=== PATIENT | female | born 1950 | race Asian ===

== ENCOUNTER 2018-09-20 23:08 | Inpatient (IN) | payer MEDICARE, OTHER ==
[~2018-09-20] VITALS: Ht 157.5 cm; Wt 49.0 kg
[2018-09-20] MEDS ORDERED: RISP2TAB5 PO (23:43)
[2018-09-20] MEDS ORDERED: MIRT15TA7 PO (23:43)
[2018-09-20] MEDS ORDERED: ACET-2154 PO (23:43)
[2018-09-20] MEDS ORDERED: MAG30ORA PO (23:43)
[2018-09-20] MEDS ORDERED: MAGN400O6 PO (23:43)
[2018-09-20 23:51] LABS: BASOPHILS # (AUTO) 0.1 K/uL (0.0-8.0); BASOPHILS % (AUTO) 0.8 % (0.0-2.0); EOSINOPHILS # (AUTO) 0.1 K/uL (0.0-0.7); EOSINOPHILS % (AUTO) 0.7 % (0.0-7.0); HEMOGLOBIN 12.2 g/dL (10.9-14.3); LYMPHOCYTES # (AUTO) 1.9 K/uL (20.0-40.0); LYMPHOCYTES % (AUTO) 24.5 % (20.5-51.5); MEAN CORPUSCULAR HEMOGLOBIN 31.2 uug (24.7-32.8); MEAN CORPUSCULAR HGB CONC 35 g/dL (32.3-35.6); MEAN CORPUSCULAR VOLUME 89.6 fL (75.5-95.3); MONOCYTES # (AUTO) 0.8 K/uL (2.0-10.0); MONOCYTES % (AUTO) 10.5 % (0.0-11.0); NEUTROPHILS # (AUTO) 4.9 K/uL (1.8-8.9); NEUTROPHILS % (AUTO) 63.5 % (38.5-71.5); PLATELET COUNT (AUTO) 352 K/uL (179-408); WHITE BLOOD COUNT (AUTO) 7.7 K/uL (3.8-11.8)
--- NOTE | 2018-09-20 23:51 | NUR ---
Pt. BIB ambulance from [facility] on 5150 for GD - for refusing medications and repetetive behaviors, pt. needs constant redirection and repetetively asks invasive questions, she continues to get up and tries to leave room, here for medical clearance to admit to MHU, will continue to monitor,
[2018-09-20 23:53] LABS: *BILIRUBIN,URIN NEGATIVE (NEGATIVE); *BLOOD, URINE NEGATIVE (NEGATIVE); *CLARITY,URINE CLEAR (CLEAR); *COLOR,URINE YELLOW (YELLOW); *KETONES,URINE NEGATIVE (NEGATIVE); *UROBILINOGEN,URINE 0.2 E.U./dl (NORMAL); LEUKOCYTE ESTERASE ,URINE TRACE (NEGATIVE); NITRITE, URINE NEGATIVE (NEGATIVE); PH,URINE 5.5 (5.0-8.0); UGLUCOSE NEGATIVE (NEGATIVE)
[2018-09-21] LABS: CARBON DIOXIDE 26 mmol/L (21-32); CHLORIDE 103 mmol/L (98-107); CREATININE 0.9 mg/dL (0.6-1.3); ETHANOL < 3 MG/DL (0-0); GLUCOSE 94 mg/dL (74-106); POTASSIUM 3.8 mmol/L (3.5-5.1); UREA NITROGEN, BLOOD 14 mg/dL (7-18)
[2018-09-21 00:02] LABS: BACTERIA,URINE MODERATE /HPF (NONE SEEN); RBC,URINE 0-3 /HPF (0-3); SQUAMOUS EPITHELIAL CELL,UR MODERATE /HPF (NONE SEEN)
[2018-09-21 00:03] LABS: *AMPHETAMINE, URINE NEGATIVE (NEGATIVE); *BARBITURATE, URINE NEGATIVE (NEGATIVE); *CANNABINOID, URINE NEGATIVE (NEGATIVE); *COCCAINE, URINE NEGATIVE (NEGATIVE); *OPIATE, URINE NEGATIVE (NEGATIVE); *PHENCYCLIDINE SCREEN,URINE NEGATIVE (NEGATIVE); URINE AMORPHOUS URATE FEW /HPF
[2018-09-21 00:07] LABS: ALANINE AMINOTRANSFERASE 20 U/L (14-59); ALKALINE PHOSPHATASE 104 U/L (50-136); ASPARTATE AMINOTRANSFERASE 15 U/L (15-37); BILIRUBIN,DIRECT 0.1 mg/dL (0.0-0.2); BILIRUBIN,TOTAL 0.3 mg/dL (0.2-1.0); TOTAL PROTEIN, SERUM 7.4 g/dL (6.4-8.2)
--- NOTE | 2018-09-21 00:20 | NUR ---
Gave report to raine Eckert. to admit to MHU room 137B, needs constant redirection, keeps coming into nursing station
[2018-09-21 00:29] LABS: ACETAMINOPHEN < 2.0 ug/mL (10-30)
--- NOTE | 2018-09-21 00:30 | NUR ---
Pt. refused to be transferred to [facility], amarilis rodriguez called - pt. changed her mind and decided to willingly transfer, pt. transferred off unit in wheelchair, NAD, Addendum: 09/21/18 at 0043 by BHAKTI Belongings list completed, MRSA swab completed and sent to lab,
--- NOTE | 2018-09-21 00:40 | NUR ---
GPS: 67 year olf female Admitted to mhu from [facility] via w/c via [place] [facility] staff in stable condition.patient is on 72 hrs hold for GD. Patient is a/o x3 ambulatory with period of delusional.patient refused body check,refused to answer questions. uncooperative with staff,verbally abusive.all personal belonging list done.both md aware of patient arrive.safety emphasized. v/s wnl.
[2018-09-21] MEDS ORDERED: TEMAZEPAM 7.5 MG CAPSULE PO PRN (01:00)
[2018-09-21] MEDS ORDERED: MAG HYDROX/AL HYDROX/SIMETH 30 ML LIQUID UDC PO PRN (01:00)
[2018-09-21] MEDS ORDERED: CLONAZEPAM 0.5 MG TABLET PO SCH (01:00)
[2018-09-21] MEDS ORDERED: ACETAMINOPHEN 325 MG TABLET PO PRN (01:00)
[2018-09-21] MEDS ORDERED: MAGNESIUM HYDROXIDE 30 ML LIQUID UDC PO PRN (01:00)
[2018-09-21] MEDS ORDERED: CLONAZEPAM 0.5 MG TABLET PO PRN (02:30)
[2018-09-21 02:36] VITALS: BP 133/95
--- NOTE | 2018-09-21 06:14 | NUR ---
GPS: Remain argumentative and needy with staff. took shower this morning. slept 1.5 hrs through the night. continue monitor for safety.
[2018-09-21] MEDS ORDERED: TEMAZEPAM 15 MG CAPSULE PO PRN (07:30)
[2018-09-21] MEDS ORDERED: risperiDONE 1 MG TABLET PO SCH (11:00)
[2018-09-21] MEDS: risperiDONE 2 MG TABLET PO SCH ×2 (12:00→20:59)
[2018-09-21] MEDS: NICOTINE 14 MG/24HR PATCH TD SCH (12:30)
--- NOTE | 2018-09-21 14:38 | NUR ---
Initial Discharge Plan: Patient is a 67 year old female who is LPS conserved (see chart for paperwork). Patient currently resides at [facility] [[address] [place] [address]; ]and would like to return when ready. residential support worker called and spoke with project coordinator rn, Best, at the facility who states patient is on a 7-day bed hold and may return when ready. Patient has a public guardian, Vania Garcia [ ], who is currently out of the office. However, socially responsible investment adviser instructed to call Unit 5 Duty Worker [[phone]] to obtain detain and treat and other information. residential support worker will continue to collaborate with patient, public guardian, and MD on a safe and proper discharge.
--- NOTE | 2018-09-21 16:00 | NUR ---
Discharge Planning: convention worker called and spoke with Unit 5 Albers Worker [[phone]], Natalie, at [facility] office. Natalie has faxed over detain and treat and LPS conservatorship paperwork. All paperwork has been placed in patient chart.
[2018-09-21] MEDS: MIRTAZAPINE 15 MG TABLET PO SCH (20:59)
--- NOTE | 2018-09-22 06:08 | NUR ---
GPS: Remain uncooperative, argumentative and needy with staff. refused medications and care. wonder around in the unit. talking to her self in dark room. very confuse at time. slept 2 hrs through the night. continue monitor for safety.
[2018-09-22] MEDS: NICOTINE 14 MG/24HR PATCH TD SCH (08:12)
[2018-09-22] MEDS: risperiDONE 2 MG TABLET PO SCH ×3 (08:12→20:53)
[2018-09-22 20:14] VITALS: BP 110/58
[2018-09-22] MEDS: MIRTAZAPINE 15 MG TABLET PO SCH (21:00)
--- NOTE | 2018-09-22 21:21 | NUR ---
received patient in the dayroom by herself talking and want to be left alone. spoke to patient but refuse to answer. uncooperative and non-compliant with care. able to persuade to take her meds but it takes too long to for her to take it. Gets very irritated easily. Very difficult to redirect. Will monitor patient.Refused to have vital signs taken. making needs known.
--- NOTE | 2018-09-23 06:33 | NUR ---
awake most of the shift. slept only 3 hours. gets irritable easily wandering back and forth the unit. non-compliant with care. very hard to redirect. talking most of the time to herself. no issues with combativeness, but easily gets agitated and irritated. will monitor patient.
[2018-09-23] MEDS: risperiDONE 2 MG TABLET PO SCH ×2 (08:50→20:10)
[2018-09-23] MEDS: NICOTINE 14 MG/24HR PATCH TD SCH (08:51)
[2018-09-23] MEDS: MIRTAZAPINE 15 MG TABLET PO SCH (20:10)
--- NOTE | 2018-09-24 05:00 | NUR ---
Received Pt pacing the hallway and day room, noted to respond to internal stimuli, whispering and talking quietly to herself, (+)AH. A+Ox2 to self and place. Pt has poor insight into psychiatric condition and reason for admission. Pt states she is here "because I'm conserved." Pt refused VS stating, "I refuse, I know my rights." Mood is labile and irritable. Affect is restricted, speech pressured. Pt compliant with scheduled HS Risperdal 2mg, but refused Remeron 15mg stating "that's not going against my conservator, so I don't have to take it." Risks and benefits of medications discussed with Pt, but she still refused. Pt is guarded and gives minimal disclosure. Denies SI/HI. Awoke in the middle of the night, stood in the middle of the hallway and began doing stretches in a bizarre manner, the went back to bed. Denies pain, appears in to be in no acute physical distress.
[2018-09-24] MEDS: NICOTINE 14 MG/24HR PATCH TD SCH (09:00)
[2018-09-24] MEDS: risperiDONE 2 MG TABLET PO SCH ×2 (10:19→20:22)
[2018-09-24] MEDS ORDERED: MIRTAZAPINE 15 MG TABLET PO SCH (21:00)
--- NOTE | 2018-09-25 06:16 | NUR ---
Pt was anxious and restless throughout most of the shift, refused prn medication. Pt is experiencing AH and responds to internal stimuli, is internally preoccupied. Pt is disorganized and was observed packing her personal items and pacing around the unit with them, redirected as needed. Refused HS Remeron, compliant with Risperdal. No aggressive behaviors. Refused AM shower.
[2018-09-25] MEDS: risperiDONE 2 MG TABLET PO SCH ×2 (08:33→20:22)
[2018-09-25] MEDS: NICOTINE 14 MG/24HR PATCH TD SCH (08:33)
--- NOTE | 2018-09-25 16:20 | NUR ---
Discharge Planning: marshmallow machine worker called and spoke with Best [ ], tender coordinator, at [facility]. marshmallow machine worker inquired about 7-day bed-hold and when hold expires. Per Best, patient 7-day bed-hold will Tuesday. Best further states that patient will be welcomed back if patient is DC during bed-hold.
--- NOTE | 2018-09-25 16:43 | NUR ---
Group Note: GOAL Patient will actively participate in the group discussion of the day or listen respectfully to other peers responses. INTERVENTION Social Work Drawer In Plain Loom invited patient to participate in a group discussion held from 2:30-3:15 pm in the activities room. LAURA Wall and Social Work Drawer In Plain Loom Bety facilitated a group discussion regarding life experiences and valuable life lessons. RESPONSE Patient did not actively participate in the discussion with her peers but remained cooperative throughout discussion. Patient remained attentive and listened respectfully as the other patients shared. PLAN Patient to attend the next group discussion.
--- NOTE | 2018-09-26 02:43 | NUR ---
Received Pt pacing back and forth between the hallway and the day room. Pt initially calm and pleasant, and requested 2 snacks. Upon receiving the snacks, Pt became demanding and insisted on more snacks. Pt became angry and verbally abusive to staff when limits were set. Later in the shift, Pt was again appeared pleasant and bright, but was attempting to manipulate staff for more snacks. Pt again became upset and went back to her room and slammed the door. Pt remains easily irritable and labile with poor insight. Uncooperative, Pt refused weekly weight and VS. Responds to internal stimuli and is preoccupied, (+)AH. VS stable, denies pain, in no acute physical distress.
[2018-09-26] MEDS: NICOTINE 14 MG/24HR PATCH TD SCH (08:19)
[2018-09-26] MEDS: risperiDONE 2 MG TABLET PO SCH ×2 (08:19→20:08)
--- NOTE | 2018-09-26 11:17 | NUR ---
Firearms Report: signal worker completed and submitted a [employer] firearms report for a 5250 GD certification.
[2018-09-26] MEDS ORDERED: ALBUTEROL SULFATE 2.5 MG/3 ML NEBU NEB PRN (16:15)
--- NOTE | 2018-09-26 20:15 | NUR ---
RECEIVED PATIENT IN THE DAY ROOM EATING HER DINNER. UPON APPROACHED, SHE WAS NOTED VERBALLY ABUSIVE, EASILY IRRITATED, LABILE BX. HOWEVER, AFTER A FEW MINUTES TALKING WITH HER, SHE BECAME PLEASANT AND COOPERATIVE. PATIENT WAS COMPLIANT WITH [facility] MEDICATIONS, V/S STABLE AT THIS TIME. PATIENT WAS REASSURED FOR HER SAFETY. WILL CONTINUE TO MONITOR.
--- NOTE | 2018-09-26 23:31 | NUR ---
PT APPROACHED THE NURSING STATION, SHE ASKED FOR SNACKS, SNACK WERE GIVEN. SHE IS NOTED TALKING TO HERSELF, RESPONDING TO INTERNAL STIMULI, AND FLIGHT OF IDEAS. CONTINUE WITH LABILE BX. FLAT AFFECT. SHE WAS REASSURED FOR SAFETY. WILL CONTINUE TO MONITOR.
[2018-09-27] MEDS: NICOTINE 14 MG/24HR PATCH TD SCH (09:00)
[2018-09-27] MEDS: risperiDONE 2 MG TABLET PO SCH (09:52)
--- NOTE | 2018-09-27 10:07 | NUR ---
Discharge Note: Patient will be discharged back to [facility] [[address] [place] [address]; ] via ambulance transportation at 12:00pm. Please arrange ambulance transportation for this patient. automotive tire worker called and spoke with LPS conservator, Vania Garcia [[phone]] who is aware and agreeable with discharge plans. Patient is alert and oriented x3, denies SI/HI, and is aware and agreeable with discharge plans. Patient will follow-up with Dr. Mixon (Clerk [facility] [address]) and Dr. Vyas (psychiatrist). Patient has been provided with outpatient mental health resources to [facility] , Norma Pinto , and the National Suicide Prevention Lifeline .
== END 2018-09-27 13:45 | DRG 885 ==
LOC: ER 23:11 → GPS 09-21 00:21
PROVIDERS: ADMIT Psychiatry & Neurology Psychiatry; ATTEND Internal Medicine
DX: F25.9 Schizoaffective disorder, unspecified (principal); D68.59 Other primary thrombophilia; N39.0 Urinary tract infection, site not specified; E44.1 Mild protein-calorie malnutrition; Z74.09 Other reduced mobility; Z90.11 Acquired absence of right breast and nipple; Z85.3 Personal history of malignant neoplasm of breast; J44.9 Chronic obstructive pulmonary disease, unspecified; Z91.19 Patient's noncompliance with other medical treatment and regimen; F41.9 Anxiety disorder, unspecified; F17.200 Nicotine dependence, unspecified, uncomplicated
CPT/HCPCS: 36415; 71045; 80307; 85025; 93005; A4663; G0480; G0480-TC